=== PATIENT | male | born 1960 | race Caucasian/White ===

== ENCOUNTER → 2023-10-14 06:26 | Day surgery (SDC) | payer BC, SELFPAY | LOC: GI 06:26 | PROVIDERS: ATTENDING PHYSICIAN Surgery | DX: Z12.11 Encounter for screening for malignant neoplasm of colon (principal); K57.30 Diverticulosis of large intestine without perforation or abscess without bleeding; K62.1 Rectal polyp; K63.5 Polyp of colon; Z86.010 Personal history of colon polyps; Z87.19 Personal history of other diseases of the digestive system | CPT/HCPCS: 45380; 88305 ==

== ENCOUNTER 2024-07-11 14:22 | Emergency (ER) | payer BC, SELFPAY ==
[2024-07-11 14:27] VITALS: BP 143/101
[2024-07-11 14:49] VITALS: BMI 31.9
--- NOTE | 2024-07-11 15:00 | ED.GENMED ---
History of Present Illness
General
Chief Complaint: Eye Problems
Source: patient
Exam Limitations: none
Time Seen by Provider: 07/11/24 14:35
Nursing documentation reviewed up to this point in time: agreed with
History of Present Illness
History of Present Illness:
64 y/o M with R eye pain, blurry vision after dog accidentally scratched his R eye while the dog was playing
pt says his eye was open when this happened
it was about 30 minutes [employer]
he has pain, clear tearing and fb sensation
no vision loss
sees dr rubi for eye issues on his L side;
Past History
Past History
ED Past Medical History: None
ED Past Surgical History: Other (Hernia repair)
Social History
Tobacco: Non-smoker
Personal:
Living: with family
Employment: Employed
Family History
Family History: Other (Noncontributory)
Review of Systems
Review of Systems
Allergies reviewed?: Yes
All Other Systems: Not applicable
Phy Exam
Physical Exam
Physical Exam:
GENERAL: Alert , in no apparent distress
EYE: pupils equal and reactive
conjunctiva erythematous, no significant tearing
photophobia
able to move eye around no difficulty
vision grossly intact
+ fluroscein uptake irreuglar superior aspect of cornea approx 5 x 2 mm, superior top of hte pupillary axis from 10 o clock to 2 oclock
no evidence of globe injury
surrouding eye normal
SKIN: Warm and dry, skin intact.
PSYCH: Normal and appropriate interaction.
Course
Orders/Labs/Results
Orders:
Orders
07/11/24 14:40
Visual Acuity- Treatment ONCE
07/11/24 14:59
Erythromycin (Ilotycin) [Erythromycin 0.5% Ophthalmic Ointment] See Dose Instructions OPHTH NOW STA
Vital Signs
Initial and Last Documented VS:
Initial Vital Signs
Temp Pulse Resp BP Pulse Ox
37.0 C 67 16 143/101 97
07/11/24 14:27 07/11/24 14:27 07/11/24 14:27 07/11/24 14:27 07/11/24 14:27
Last Documented Vital Signs
Temp Pulse Resp BP Pulse Ox
37.0 C 67 16 143/101 97
07/11/24 14:27 07/11/24 14:27 07/11/24 14:27 07/11/24 14:27 07/11/24 14:27
MDM/Problems Addressed
Differential Diagnosis Includes:
corneal abrasion, laceration, less likely globe rupture
MDM/Problems Addressed:
64-year-old male wears glasses for distance presents for right eye pain and clear tearing and photophobia after his dog accidentally scratched his eye. Patient says he is able to see clearly but has some tearing at times and difficulty keeping his
eye open. He is not having any significant tearing or evidence of globe rupture, there is no surrounding orbital tenderness or lacerations. His EOMs are intact. He pupils equal round and reactive to light. After tetracaine was applied patient
had fluorescein stain which revealed irregularly shaped 5 x 2 mm corneal abrasion to the superior aspect of the cornea from 10:00 to 2:00 just including the top portion of the pupil
Erythromycin ointment 4 times daily, follow-up with rags laborer recommended, NSAIDs, ice
*Critical Care Note
Total Time (30-74mins, 75-104mins- exclusive of procedures): Not Applicable
ED Attending Note
-
Portions of this chart may have been created with voice recognition software.� Occasional wrong word or��sound alike� substitutions may have occurred due to the inherent limitations of voice recognition software.
Discharge Plan
Departure
Patient Disposition: Home (Routine Discharge)
Date of Disposition: 07/11/24
Time of Disposition: 15:05
Patient with high blood pressure during this ER visit?: Yes
Condition: Fair
Covid-19: Not Applicable
Discharge Problem:
Injury of conjunctiva and corneal abrasion of right eye w/o FB
Instructions: Corneal Abrasion (DC)
Prescriptions:
New
erythromycin 5 mg/gram (0.5 %) ointment
0.5 inch ophthalmic (eye) Q6H 7 Days Qty: 3.5 0RF
No Action
amoxicillin-pot clavulanate 875 MG/125 MG tablet
1 tab PO Q12 Qty: 20 0RF
hydrocodone-acetaminophen 1 TABLET tablet
1 tab PO QIDPRN PRN (Reason: pain) Qty: 12 0RF
Activity Restrictions/Additional Instructions:
You have a corneal abrasion of your right eye. It is large. It should heal over the next several days. Please take Tylenol or ibuprofen for pain. You can wear sunglasses or stay in a dark room because you will be sensitive to light. Apply the
erythromycin ointment 4 times a day for 7 days . Follow-up with your eye doctor next week. Return for any concerns
Interventions
Interventions:
*Risk Screen - Suicide Last Done: 07/11/24 14:27
*General Assessment Last Done: 07/11/24 14:50
*Neglect/Abuse Screening Last Done: 07/11/24 14:27
Discharge Date and Time
Print Language: GEORGIAN
[2024-07-11] MEDS: ERYTHROMYCIN 0.5% OPHTHALMIC OINTMENT 1 APPLIC OPHTH (15:16)
[2024-07-11 15:21] VITALS: BP 141/97
== END 2024-07-11 15:27 | disposition home or self-care (01) ==
LOC: EMR 14:22
PROVIDERS: EMERGENCY PHYSICIAN Student in an Organized Health Care Education/Training Program; FAMILY PHYSICIAN Family Medicine
DX: S05.01XA Injury of conjunctiva and corneal abrasion without foreign body, right eye, initial encounter (principal); W54.8XXA Other contact with dog, initial encounter
CPT/HCPCS: 99283